=== PATIENT | female | born 1990 | race African-American/Black ===

== ENCOUNTER → 2023-06-21 | Emergency (ER) | payer BC ==
[~2023-06-21] MED LIST: IBUPROFEN 400 MG TAB ONE; predniSONE 20 MG TAB ONE
[2023-06-21 09:40] LABS: Specific Gravity 1.014 (1.005-1.030)
--- NOTE | 2023-06-21 09:44 | ER ---
Nurse's Notes [facility] Name: Colton Monroy Age: 32 yrs Sex: Female : 1990 Arrival Date: 06/21/2023 Time: 08:25 Bed 19 Private MD: Matthias Dunbar Diagnosis: Pain in left wrist;Carpal tunnel syndrome Presentation: 06/20 08:49 Chief complaint: Left hand pain that radiates to forearm and intermittent numbness of hb fingers x 5 days. Coronavirus screen: At this time, the client does not indicate any symptoms associated with coronavirus-19. Ebola Screen: No symptoms or risks identified at this time. Initial Sepsis Screen: Does the patient meet any 2 criteria? No. Patient's initial sepsis screen is negative. Does the patient have a suspected source of infection? No. Patient's initial sepsis screen is negative. Risk Assessment: Do you want to hurt yourself or someone else? Patient reports no desire to harm self or others. Onset of symptoms was June 17, 2023. 08:49 Method Of Arrival: Ambulatory 08:49 Acuity: RIGOBERTO 4 hb Triage Assessment: 08:49 General: Appears in no apparent distress. uncomfortable, Behavior is calm, cooperative. hb Pain: Pain currently is 5 out of 10 on a pain scale. Neuro: Level of Consciousness is awake, alert, obeys commands, Oriented to person, place, time, situation. Cardiovascular: Patient's skin is warm and dry. Respiratory: Respiratory effort is even, unlabored, Respiratory pattern is regular, symmetrical. Musculoskeletal: Reports left hand pain and intermittent numbness. Historical: - Allergies: 08:50 No Known Allergies; hb - Immunization history:: Adult Immunizations up to date. - Social history:: Smoking status: Patient denies any tobacco usage or history of. - Family history:: not pertinent. Screenin:22 [facility] ED Fall Risk Assessment (Adult) Score/Fall Risk Level 0 - 2 = Low Risk nj1 Oriented to surroundings, Maintained a safe environment, Hourly rounding (assess needs \T\ fall precautionary measures) done. Abuse screen: Denies threats or abuse. Denies injuries from another. Nutritional screening: No deficits noted. Tuberculosis screening: No symptoms or risk factors identified. Assessment: 09:15 General: Appears in no apparent distress. comfortable, Behavior is calm, cooperative, nj1 appropriate for age. 09:15 Pain: Complains of pain in left hand Pain currently is 3 out of 10 on a pain scale. nj1 Pain: Pain began 2-3 days ago. Neuro: Level of Consciousness is awake, alert, obeys commands, Oriented to person, place, time, situation. Cardiovascular: Patient's skin is warm and dry. Respiratory: Airway is patent Respiratory effort is even, unlabored. Musculoskeletal: Reports pain in left hand. 10:49 Reassessment: Patient appears in no apparent distress at this time. Patient is alert, nj1 oriented x 3, equal unlabored respirations, skin warm/dry/pink. Vital Signs: 08:49 BP 177 / 88; Pulse 79; Resp 18; Temp 98.3; Pulse Ox 100% on R/A; Weight 108.86 kg; hb Height 5 ft. 5 in. ; Pain 5/10; 10:33 BP 171 / 84; Pulse 70; Resp 17; Pulse Ox 100% ; nj1 08:49 Body Mass Index 39.94 (108.86 kg, 165.1 cm) hb 08:49 Pain Scale: Adult hb ED Course: 08:27 Patient arrived in ED. rg4 08:28 Matthias Dunbar MD is Private Physician. rg4 08:45 Rolando Taylor MD is Attending Physician. matthew 08:48 Client placed on continuous cardiac and pulse oximetry monitoring. NIBP monitoring hb applied. 08:50 Triage completed. hb 08:50 Arm band placed on. hb 09:01 Meg Simpson, RN is Primary Nurse. nj1 09:15 Velcro wrist splint applied to left wrist. nj1 09:23 Patient has correct armband on for positive identification. Bed in low position. Call nj1 light in reach. Provided Education on: call light, fall precautions. 09:42 Matthias Dunbar MD is Referral Physician. matthew 09:43 Jack Saenz MD is Referral Physician. matthew 10:48 No provider procedures requiring assistance completed. Patient did not have IV access nj1 during this emergency room visit. Administered Medications: 09:15 Drug: predniSONE PO 60 mg PO once Route: PO; nj1 10:07 Follow up: Response: No adverse reaction nj1 09:20 Not Given (Patient Refused): [id number] mg PO once nj1 Medication: 10:49 VIS not applicable for this client. nj1 Outcome: 09:43 Discharge ordered by . matthew 10:48 Discharged to home ambulatory, nj1 10:48 Condition: stable 10:48 Discharge instructions given to patient, Instructed on discharge instructions, follow up and referral plans. medication usage, Demonstrated understanding of instructions, follow-up care, medications, Prescriptions given X 3, 10:49 Patient left the ED. nj1 Signatures: Rolando Taylor MD MD cha Baxter, Heather, BASIL RN Phoebe Manzo 4 Meg Simpson, BASIL RN nj1 Corrections: (The following items were deleted from the chart) 08:50 08:49 BP 177 / 88; Pulse 79bpm; Resp 18bpm; Pulse Ox 100% RA; Temp 98.3F; Pain 5/10, hb Adult; hb
--- NOTE | 2023-06-21 09:44 | EDPHYS ---
Physician Documentation [facility] Name: Colton Monroy Age: 32 yrs Sex: Female : 1990 Arrival Date: 06/21/2023 Time: 08:25 Bed 19 Private MD: Matthias Dunbar ED Physician Rolando Taylor HPI: 06/20 09:35 This 32 yrs old Black Female presents to ER via Ambulatory with complaints of Arm Pain, matthew Arm Swelling. 09:35 The patient or guardian complains of decreased range of motion, pain. The complaints matthew affect the left wrist and left hand. Context: The problem was sustained at an unknown location. Onset: The symptoms/episode began/occurred 3 day(s) ago. Treatment prior to arrival includes: no previous treatment. Modifying factors: The symptoms are alleviated by remaining still, the symptoms are aggravated by movement. Associated signs and symptoms: The patient has no apparent associated signs or symptoms. Severity of symptoms: At their worst the symptoms were mild, moderate, in the emergency department the symptoms are unchanged. The patient has not experienced similar symptoms in the past. Historical: - Allergies: 08:50 No Known Allergies; hb - Immunization history:: Adult Immunizations up to date. - Social history:: Smoking status: Patient denies any tobacco usage or history of. - Family history:: not pertinent. ROS: 09:35 Constitutional: Negative for fever, chills, and weight loss, Eyes: Negative for injury, matthew pain, redness, and discharge, ENT: Negative for injury, pain, and discharge, Neck: Negative for injury, pain, and swelling, Cardiovascular: Negative for chest pain, palpitations, and edema, Respiratory: Negative for shortness of breath, cough, wheezing, and pleuritic chest pain, Abdomen/GI: Negative for abdominal pain, nausea, vomiting, diarrhea, and constipation, Back: Negative for injury and pain, : Negative for injury, bleeding, discharge, and swelling, Skin: Negative for injury, rash, and discoloration, Neuro: Negative for headache, weakness, numbness, tingling, and seizure, Psych: Negative for depression, anxiety, suicide ideation, homicidal ideation, and hallucinations, Allergy/Immunology: Negative for hives, rash, and allergies, Endocrine: Negative for neck swelling, polydipsia, polyuria, polyphagia, and marked weight changes, Hematologic/Lymphatic: Negative for swollen nodes, abnormal bleeding, and unusual bruising, 09:35 MS/extremity: Positive for decreased range of motion, pain, tenderness, of the lateral aspect of left wrist and medial aspect of left wrist, Exam: 09:35 Constitutional: This is a well developed, well nourished patient who is awake, alert, matthew and in no acute distress. Head/Face: Normocephalic, atraumatic. Eyes: Pupils equal round and reactive to light, extra-ocular motions intact. Lids and lashes normal. Conjunctiva and sclera are non-icteric and not injected. Cornea within normal limits. Periorbital areas with no swelling, redness, or edema. ENT: Nares patent. No nasal discharge, no septal abnormalities noted. Tympanic membranes are normal and external auditory canals are clear. Oropharynx with no redness, swelling, or masses, exudates, or evidence of obstruction, uvula midline. Mucous membranes moist. Neck: Trachea midline, no thyromegaly or masses palpated, and no cervical lymphadenopathy. Supple, full range of motion without nuchal rigidity, or vertebral point tenderness. No Meningismus. Chest/axilla: Normal chest wall appearance and motion. Nontender with no deformity. No lesions are appreciated. Cardiovascular: Regular rate and rhythm with a normal S1 and S2. No gallops, murmurs, or rubs. Normal PMI, no JVD. No pulse deficits. Respiratory: Lungs have equal breath sounds bilaterally, clear to auscultation and percussion. No rales, rhonchi or wheezes noted. No increased work of breathing, no retractions or nasal flaring. Abdomen/GI: Soft, non-tender, with normal bowel sounds. No distension or tympany. No guarding or rebound. No evidence of tenderness throughout. Back: No spinal tenderness. No costovertebral tenderness. Full range of motion. Skin: Warm, dry with normal turgor. Normal color with no rashes, no lesions, and no evidence of cellulitis. Neuro: Awake and alert, GCS 15, oriented to person, place, time, and situation. Cranial nerves II-XII grossly intact. Motor strength 5/5 in all extremities. Sensory grossly intact. Cerebellar exam normal. Normal gait. Psych: Awake, alert, with orientation to person, place and time. Behavior, mood, and affect are within normal limits. 09:35 Musculoskeletal/extremity: Extremities: grossly normal except: decreased ROM, pain, swelling, tenderness, ROM: full active range of motion, full passive range of motion, limited active range of motion due to pain, limited passive range of motion due to pain, Circulation is intact in all extremities. Sensation intact. Compartment Syndrome exam of affected extremity: is normal. Vital Signs: 08:49 BP 177 / 88; Pulse 79; Resp 18; Temp 98.3; Pulse Ox 100% on R/A; Weight 108.86 kg; hb Height 5 ft. 5 in. ; Pain 5/10; 10:33 BP 171 / 84; Pulse 70; Resp 17; Pulse Ox 100% ; nj1 08:49 Body Mass Index 39.94 (108.86 kg, 165.1 cm) hb 08:49 Pain Scale: Adult hb MDM: 08:45 Patient medically screened. matthew 09:37 Differential diagnosis: contusion, tendonitis. Data reviewed: vital signs, nurses matthew notes, lab test result(s), urinalysis. Consideration of Admission/Observation Escalation of care including admission/observation considered. I considered the following discharge prescriptions or medication management in the emergency department Medications were administered in the Emergency Department. See MAR. Test considered but Not performed: Labs: no labs. Historians other than the Patient: pt well informed. Care significantly affected by the following chronic conditions: Obesity. 06/20 09:01 Order name: Urinalysis w/ reflexes matthew 06/20 09:01 Order name: PREGU [facility] 06/20 09:01 Order name: Splint - Volar Wrist Splint: COCK UP, VELCRO; Complete Time: 09:20 matthew Administered Medications: 09:15 Drug: predniSONE PO 60 mg PO once Route: PO; nj1 10:07 Follow up: Response: No adverse reaction nj1 09:20 Not Given (Patient Refused): [id number] mg PO once nj1 Disposition Summary: 06/21/23 09:43 Discharge Ordered Notes: Location: Home [facility] Problem: new matthew Symptoms: have improved matthew Condition: Stable matthew Diagnosis - Pain in left wrist matthew - Carpal tunnel syndrome matthew Followup: matthew - With: Matthias Dunbar MD - When: 2 - 3 days - Reason: Recheck today's complaints, Continuance of care, Re-evaluation by your physician Followup: matthew - With: Jcak Saenz MD - When: 2 - 3 days - Reason: Recheck today's complaints, Re-evaluation by your physician Discharge Instructions: - Discharge Summary Sheet [facility] - Carpal Tunnel Syndrome [facility] - Wrist Pain, Adult [facility] - How to Use Cold Therapy, [id number] [facility] - Wrist Pain, Adult, [id number] [facility] - Carpal Tunnel Syndrome, [id number] [facility] Forms: - Medication Reconciliation Form [facility] - Thank You Letter [facility] - Antibiotic Education [facility] - Prescription Opioid Use [facility] - Patient Portal Instructions [facility] - Leadership Thank You Letter [facility] Prescriptions: - acetaminophen-codeine 300-30 mg Oral tablet - take 2 tablet ORAL route every 6 hours as needed for pain; 16 tablet; Refills: [facility] 0, Product Selection Permitted - Diclofenac Sodium 75 mg Oral tablet, delayed release (enteric coated) - take 1 tablet ORAL route 2 times per day; 20 tablet; Refills: 0, Product [facility] Selection Permitted - Medrol (Félix) 4 mg Oral Tablets, Dose Pack - take 1 tablet ORAL route as directed - follow package instructions; 1 packet; [facility] Refills: 0, Product Selection Permitted Signatures: Dispatcher [employer] Rolando Kirk MD MD cha Baxter, Heather, RN RN Meg Simpson RN RN nj1
[2023-06-21 09:57] LABS: Renal Epithelial <5 /HPF (None Seen); Specific Gravity 1.014 (1.005-1.030); Urine Bacteria <20 /HPF (<20); Urine Bilirubin NEGATIVE (Negative); Urine Blood Negative (Negative); Urine Clarity Extremely Turbid (Clear); Urine Color Light-Yellow (Yellow); Urine Glucose NEGATIVE (Negative); Urine Mucus Slight /HPF (None Seen); Urine Protein NEGATIVE (Negative); Urine RBC <5 /HPF (None Seen); Urine Trichomonas Present /HPF (None Seen); Urine Urobilinogen Normal (Normal)
[2023-06-21 11:00] VITALS: BP 171/84; TEMP 98.3; O2SAT 100
== END ==
LOC: ER 08:25
DX: G56.02 Carpal tunnel syndrome, left upper limb (principal)
CPT/HCPCS: 81001; 81025; 99284; J7512

== ENCOUNTER 2023-10-04 16:37 | Emergency (ER) | payer BC, OTHER ==
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
[2023-10-04] MEDS ORDERED: methocarbamoL 500 MG TAB ONE (18:09)
[2023-10-04 19:10] VITALS: BP 163/107; TEMP 99.1; O2SAT 100
== END 2023-10-04 18:19 | disposition home or self-care (01) ==
LOC: ER 16:37
DX: S16.1XXA Strain of muscle, fascia and tendon at neck level, initial encounter (principal); V49.59XA Passenger injured in collision with other motor vehicles in traffic accident, initial encounter
CPT/HCPCS: 72125; 99283